=== PATIENT | male | born 1950 | race Native Hawaiian/Other Pacific Islander ===

== ENCOUNTER 2021-05-21 09:31 | Emergency (ER) | payer OTHER ==
[~2021-05-21] VITALS: Ht 172.7 cm; Wt 97.5 kg
[2021-05-21 09:31] VITALS: TEMP 97.8
[2021-05-21 09:51] LABS: PLATELET COUNT 209 K/uL (142-355)
[2021-05-21 09:59] LABS: POTASSIUM 4.3 mmol/L (3.6-5.2)
[2021-05-21 10:30] VITALS: BP 134/96
[2021-05-21 10:48] LABS: PARTIAL THROMBOPLASTIN TIME > 192.0 SECONDS (24.5-33.6)
== END 2021-05-21 10:50 | disposition short-term general hospital (02) ==
LOC: ED 09:31
PROVIDERS: Emergency Medicine
DX: R07.89 Other chest pain (principal); I21.3 ST elevation (STEMI) myocardial infarction of unspecified site; R79.89 Other specified abnormal findings of blood chemistry; Z98.890 Other specified postprocedural states; I10 Essential (primary) hypertension
CPT/HCPCS: 36415; 80053; 83880; 84484; 85027; 85379; 85610; 85730; 93005; 96374; 99284; J1644